=== PATIENT | female | born 1995 | race Caucasian/White ===

== ENCOUNTER 2018-04-20 17:33 | Emergency (ER) | payer OTHER ==
[~2018-04-20] VITALS: Ht 165.1 cm; Wt 56.7 kg
== END 2018-04-20 23:35 | disposition home or self-care (01) ==
LOC: ER 17:33 → EDBD 17:44 → ER 17:44
DX: R10.2 Pelvic and perineal pain (principal)

== ENCOUNTER 2025-04-07 04:43 | Emergency (ER) | payer OTHER ==
[~2025-04-07] VITALS: Ht 160 cm; Wt 67.1 kg
[2025-04-07] MEDS ORDERED: 0.9 % SODIUM CHLORIDE 1,000 ML IV STA (05:54)
[2025-04-07] MEDS ORDERED: KETOROLAC TROMETHAMINE 30 MG VIAL IV STA (05:55)
[2025-04-07] MEDS ORDERED: MORPHINE SULFATE 4 MG/ML VIAL IV STA (05:55)
[2025-04-07] MEDS ORDERED: KETOROLAC TROMETHAMINE 30 MG VIAL ONE ×2 (06:15→07:13)
[2025-04-07 06:43] LABS: BASO % 0.2 % (0.1-1.2); EOS # 0.04 (0.04-0.54); EOS % 0.2 % (0.7-7.0); HEMATOCRIT 38.6 % (34.1-44.9); HEMOGLOBIN 13.8 g/dL (11.2-15.7); LYMPH # 0.85 (1.18-3.74); LYMPH % 4.5 % (19.3-53.1); MEAN CORPUSCULAR HEMOGLOBIN 30.7 pg (25.6-32.2); MONO % 4.8 % (4.7-12.5); PLATELET COUNT 292 K/uL (163-369); RED CELL DISTRIBUTION WIDTH 11.8 % (11.6-14.4)
[2025-04-07] MEDS ORDERED: PIPERACILLIN/TAZOBACTAM SODIUM 3.375 GM VIAL IV ONE (07:28)
[2025-04-07] MEDS ORDERED: PIPERACILLIN/TAZOBACTAM SODIUM 3.375 GM VIAL IV STA (07:30)
[2025-04-07 07:34] LABS: ALBUMIN 4.3 gm/dL (3.4-5.0); BILIRUBIN TOTAL 0.64 mg/dL (0.3-1.2); CALCIUM 9.2 mg/dL (8.5-10.1); CREATININE SERUM 0.83 mg/dL (0.55-1.02); GFR 82.46; GLOBULINA 3.8 G/DL (2.4-3.5); POTASSIUM 4.11 mEq/L (3.5-5.1); TOTAL PROTEIN 8.1 gm/dL (6.4-8.2)
[2025-04-07 08:20] LABS: INR 1.04; PARTIAL THROMBOPLASTIN TIME 28.5 SECONDS (22.0-34.0); PROTHROMBIN TIME 11.3 SECONDS (9.0-11.5)
[2025-04-07 12:17] LABS: URINE APPEARANCE Turbid; URINE BILIRRUBIN Negative (NEGATIVE); URINE BLOOD Negative; URINE COLOR Yellow; URINE GLUCOSE Negative (NEGATIVE); URINE LEUKOCYTE Negative; URINE NITRATE Negative; URINE PROTEIN 30 (NEGATIVE)
[2025-04-07 12:24] LABS: URINE EPITHELIAL CELLS 120.4 uL (0.0-38.8); URINE RBC 30.9 uL (0.0-20.8); URINE WBC 93.7 uL (0.0-23.2)
[2025-04-07 12:50] LABS: BASO % 0.2 % (0.1-1.2); EOS # 0.01 (0.04-0.54); EOS % 0.1 % (0.7-7.0); HEMATOCRIT 36.6 % (34.1-44.9); HEMOGLOBIN 12.7 g/dL (11.2-15.7); LYMPH # 1.29 (1.18-3.74); LYMPH % 7.6 % (19.3-53.1); MEAN CORPUSCULAR HEMOGLOBIN 30.7 pg (25.6-32.2); MONO # 1.01 (0.24-0.82); NEUT # 14.55 (1.56-6.13); NEUT % 85.7 % (34.0-71.1); PLATELET COUNT 253 K/uL (163-369); RED BLOOD COUNT 4.14 M/uL (3.93-5.22); RED CELL DISTRIBUTION WIDTH 11.9 % (11.6-14.4)
[2025-04-07 13:00] LABS: URINE BACTERIA > 9821.5 uL (0.0-1933); URINE KETONE 80 (NEGATIVE)
[2025-04-07 13:01] LABS: URINE CRYSTALS MANY /HPF
[2025-04-07] MEDS ORDERED: CEFTRIAXONE SODIUM 1,000 MG VIAL IV ONE (13:30)
[2025-04-07] MEDS ORDERED: CEFTRIAXONE SODIUM 1,000 MG VIAL ONE (13:49)
== END 2025-04-07 13:54 | disposition home or self-care (01) ==
LOC: ER 05:14
PROVIDERS: General Practice
DX: N39.0 Urinary tract infection, site not specified (principal); D36.9 Benign neoplasm, unspecified site; R10.2 Pelvic and perineal pain